=== PATIENT | male | born 1980 | race Caucasian/White ===

== ENCOUNTER 2023-12-29 02:26 | Emergency (ER) | payer OTHER, BC ==
[~2023-12-29] VITALS: Ht 170.2 cm; Wt 100.7 kg
[2023-12-29] MEDS ORDERED: OXYCODONE/APAP 10/325 TAB PO ONE (03:45)
[2023-12-29] MEDS ORDERED: PERCOCET 5-3251 EACH PO (03:50)
[2023-12-29] MEDS ORDERED: OXYCODONE/ACETAMINOPHEN 1 TAB HOME.PACK PO ONE (04:00)
[2023-12-29 04:09] VITALS: BP 135/84
== END 2023-12-29 04:12 | disposition home or self-care (01) ==
LOC: ED 02:26
DX: H16.133 Photokeratitis, bilateral (principal); I10 Essential (primary) hypertension
CPT/HCPCS: 99283

== ENCOUNTER 2024-03-28 12:46 | Emergency (ER) | payer BC ==
[~2024-03-28] VITALS: Ht 170.2 cm; Wt 96.6 kg
[~2024-03-28 12:46] MED LIST: PERCOCET 5-3251 EACH PO
[2024-03-28] MEDS ORDERED: ondansetron HCL 4 MG/2 ML VIAL IV ONE (13:15)
[2024-03-28 13:21] LABS: BASOPHILS 0.4 % (0-2); EOSINOPHILS 0.5 % (0-6); HEMATOCRIT 43.9 % (35.0-50.0); HEMOGLOBIN 14.9 g/dL (12.0-18.0); LYMPHOCYTES 17.8 % (24-44); MCH 30.5 (27-36); MCHC 33.8 g/dl (30-36); MCV 90.2 fl (81-99); MONOCYTES 8.5 % (0-12); NEUTROPHILS 72.8 % (39-80); PLATELET COUNT 259 K/uL (140-440); RBC 4.87 M/ul (4.3-5.7); RDW 13.2 (10.5-15.0)
[2024-03-28 13:44] LABS: ALBUMIN 3.7 g/dL (3.4-5.0); ALBUMIN/GLOBULIN RATIO 0.97 (1.1-2.4); ANION GAP 16.4 (7-21); BILIRUBIN, TOTAL 0.7 mg/dL (0.2-1.0); BUN/CREATININE RATIO 9.9 (6.0-28.6); CALCIUM 9.2 mg/dL (8.5-10.1); CREATININE, SERUM 1.11 mg/dL (0.70-1.30); MAGNESIUM 1.9 mg/dL (1.8-2.4); POTASSIUM 3.4 mmol/L (3.5-5.1); PROTEIN, TOTAL 7.5 g/dL (6.4-8.2)
[2024-03-28] MEDS ORDERED: LISINOPRIL20 MG PO (13:44)
[2024-03-28] MEDS ORDERED: SODIUM CHLORIDE 0.9% 1,000 ML IV PRN (13:45)
[2024-03-28] MEDS ORDERED: PRILOSEC OTC20 MG PO (13:45)
[2024-03-28 14:03] LABS: LACTIC ACID, BLOOD 0.7 mmol/L (0.4-2.0)
[2024-03-28 15:30] LABS: BILIRUBIN, URINE NEGATIVE (negative); BLOOD/HGB, URINE NEGATIVE (Negative); KETONE, URINE SMALL (Negative); LEUK ESTERASE, URINE NEGATIVE (negative); NITRITE, URINE NEGATIVE (negative); PH, URINE 5.5 (5-7)
[2024-03-28] MEDS ORDERED: ONDANSETRON ODT8 MG PO (15:42)
[2024-03-28 15:53] VITALS: BP 133/76
== END 2024-03-28 15:54 | disposition home or self-care (01) ==
LOC: ED 12:46
PROVIDERS: Emergency Medicine
DX: R10.32 Left lower quadrant pain (principal); R19.7 Diarrhea, unspecified; R10.9 Unspecified abdominal pain; Z79.899 Other long term (current) drug therapy
CPT/HCPCS: 36415; 74177; 80053; 81003; 83605; 83690; 83735; 85025; 96361; 99284-25; J2405; J7030; Q9967

== ENCOUNTER 2024-08-21 14:17 | Emergency (ER) | payer BC ==
[~2024-08-21] VITALS: Ht 170.2 cm; Wt 100.1 kg
[~2024-08-21 14:17] MED LIST changes: +LISINOPRIL20 MG PO; +ONDANSETRON ODT8 MG PO; +PRILOSEC OTC20 MG PO
[2024-08-21 15:21] VITALS: BP 89/71
== END 2024-08-21 15:39 | disposition home or self-care (01) ==
LOC: ED 14:17
DX: S30.1XXA Contusion of abdominal wall, initial encounter (principal); I10 Essential (primary) hypertension; Y93.52 Activity, horseback riding; Z79.899 Other long term (current) drug therapy
CPT/HCPCS: 73502; 99284

== ENCOUNTER 2024-12-19 14:18 | Emergency (ER) | payer OTHER, BC | END 2024-12-19 21:41 | disposition home or self-care (01) | LOC: ED 14:18 | DX: S52.122A Displaced fracture of head of left radius, initial encounter for closed fracture (principal); I10 Essential (primary) hypertension; Z79.899 Other long term (current) drug therapy; V80.010A Animal-rider injured by fall from or being thrown from horse in noncollision accident, initial encounter ==

== ENCOUNTER 2024-12-25 07:00 | Day surgery (SDC) | payer OTHER, BC ==
[~2024-12-25] VITALS: Ht 170.2 cm; Wt 100.0 kg
[~2024-12-25 07:00] MED LIST changes: +CEFAZOLIN SODIUM 2 GM in SODIUM CHLORIDE 0.9% 100 ML IV SCH; +DEXAMETHASONE SOD PHOS 4 MG/ML VIAL ONE; +HYDROCODON-ACE1 EA11 PO; +IBLOOD GLUCOSE TEST STRIP 1 EA TEST VI PRN; +KETOROLAC TROMETHAMINE 30 MG/ML VIAL ONE; +LACTATED RINGER'S 1,000 ML IV SCH; +LIDOCAINE HCL 1% 5 ML SDV INJ ONE; +LIDOCAINE HCL 2% 5 ML SDV ONE; +MIDAZOLAM HCL 2 MG/2 ML VIAL ONE; +Ropivacaine HCl 0.5% 30 ML VIAL ONE; +SODIUM CHLORIDE 0.9% 20 ML IV ONE; +TRANEXAMIC ACID IN NACL,ISO-OS 1,000 MG/100 ML PIGGYBACK IV SCH; +fentaNYL citrate 100 MCG/2 ML VIAL ONE
[2024-12-25 07:30] VITALS: BP 125/79
[2024-12-25] MEDS ORDERED: NALOXONE HCL 0.4 MG SYR IV PRN (07:45)
[2024-12-25] MEDS ORDERED: MIDAZOLAM HCL 2 MG/2 ML VIAL IV PRN (07:45)
[2024-12-25] MEDS ORDERED: IBLOOD GLUCOSE TEST STRIP 1 EA TEST VI PRN (07:45)
[2024-12-25] MEDS ORDERED: fentaNYL citrate 50 MCG/ML SDV IV PRN (07:45)
[2024-12-25] MEDS ORDERED: TRANEXAMIC ACID IN NACL,ISO-OS 200 ML IV ONE (07:50)
[2024-12-25] MEDS ORDERED: KETOROLAC TROMETHAMINE 15 MG/ML VIAL IV PRN (08:00)
[2024-12-25] MEDS ORDERED: OXYCODONE HCL 5 MG TAB PO PRN (08:00)
[2024-12-25] MEDS ORDERED: CEFAZOLIN SODIUM 2 GM VIAL ONE (08:13)
[2024-12-25] MEDS ORDERED: SODIUM CHLORIDE 0.9% 100 ML IV ONE (08:13)
[2024-12-25] MEDS ORDERED: LIDOCAINE HCL 2% 5 ML SDV ONE (08:14)
[2024-12-25] MEDS ORDERED: OXYCODONE HCL5 M1 PO (08:47)
[2024-12-25] MEDS ORDERED: GABAPENTIN300 MG PO (08:47)
[2024-12-25] MEDS ORDERED: KETOROLAC TROME10 MG PO (08:48)
--- NOTE | 2024-12-25 08:50 | NUR ---
12/25/24 0850 Lexi Chaudhry 0844: PT ARRIVES TO PACU DROWSY, BUT EASILY AROUSABLE. REPORT RECEIVED FROM FORESTRY FOREMAN AND OIL INSPECTOR. SONY 0845: PT SPONTANESOULY WAKES UP AND GOES BACK TO SLEEP. HE DENIES PAIN AND NASUEA.
[2024-12-25] MEDS ORDERED: GABAPENTIN 300 MG CAP PO SCH (09:00)
--- NOTE | 2024-12-25 09:11 | NUR ---
PT ARRIVES TO DS FROM PACU VIA STRETCHER. PT IS A&O, ASKING QUESTIONS APPROPRIATELY. PT ON RA W/O2 >90%, RESPIRATIONS EVEN AND UNLABORED, NO SIGNS OF DISTRESS. REPORT RECEIVED FROM IRENA NAJERA, PT AND PT MOTHER AT BEDSIDE. PT PROVIDED PUDDING, CRACKERS, AND ICE WATER. PT TOLERATING ORALS WITHOUT DIFFICULTY SWALLOWING. PO GABAPENTIN GIVEN (SEE EMAR). CALL LIGHT WITHIN REACH, PT REPORTS NO FURTHER QUESTIONS OR NEEDS AT THIS TIME.
[2024-12-25 09:12] VITALS: BP 115/62
--- NOTE | 2024-12-25 09:45 | NUR ---
IN PT ROOM FOR PAIN ASSESSMENT. PT STATES HE HAS NO PAIN OR NAUSEA. PT GETTING DRESSED AT THIS TIME W/ASSISTANCE FROM PT AND PT MOTHER. CALL LIGHT WITHIN REACH. PT STATES NO FURTHER NEEDS AT THIS TIME.
[2024-12-25 10:06] VITALS: BP 124/65
--- NOTE | 2024-12-25 10:10 | NUR ---
IN PT ROOM FOR VS AND ASSESSMENT. THIS RN GIVES DC EDUCATION TO PT, AND PT FAMILY. ALL STATE VERBAL UNDERSTANDING AND NO FURTHER QUESTIONS OR NEEDS AT THIS TIME. PT OFF OF UNIT VIA WC TO PASSENGER SIDE OF VEHICLE. ALL BELONGINGS IN PT POSSESSION. ICE WATER, ICE PACK, AND SLING IN PT POSSESSION.
[2024-12-25] MEDS ORDERED: SEVOFLURANE 250 ML BTL INH ONE (14:21)
--- NOTE | 2024-12-26 08:27 | OR ---
[facility] [address], [place] [address] Signed DATE OF OPERATION: 12/25/2024 SURGEON: Yunier Valdez MD PREOPERATIVE DIAGNOSIS: Fracture dislocation, left elbow. POSTOPERATIVE DIAGNOSIS: Fracture dislocation, left elbow. PROCEDURE PERFORMED: Closed reduction, left elbow with casting. COATING LINE WORKER: None. ANESTHESIA: General. BLOOD LOSS: None. BRIEF HISTORY: Chase is a 43-year-old gentleman, thrown off a horse, dislocating his elbow with a large coronoid fracture. He was reduced in the ER and placed in an inadequate splint. He was then sent to CT scan where the CT revealed he was dislocated once again. He was then sent home. He appeared in my office with his elbow dislocated yesterday. We booked him for the surgery this morning to close reduce this with possible ex fix. Risks, benefits, and alternatives were discussed. He understands, wished to proceed. DESCRIPTION OF PROCEDURE: Once consent was obtained, he was taken to the operating room. After adequate anesthesia, he was placed on the OR table with a hand table. C-arm was brought in and using a combination of traction and in extension and manipulation, the elbow was reduced. A good concentric reduction was obtained. This was checked using image intensifier and found to be good. He was unstable beyond 80 degrees of flexion. The arm was then flexed to about 95 degrees. He was then placed in a posterior splint with a large side pieces and the reduction was checked once again after the plaster had set. The elbow reduction was maintained. He was then awakened, taken to the recovery room in satisfactory Electronically Signed By: YUNIER VALDEZ MD 12/26/24 0827 PATIENT NAME: CHASE BARR OPERATIVE REPORT DATE OF : 78 REPORT #: [id number] PHYSICIAN: YUNIER VALDEZ MD PCP: NICANOR GARCIA MD REPORT IS CONFIDENTIAL AND NOT TO BE RELEASED WITHOUT AUTHORIZATION [facility] [address] [facility] [place], [place] [address] Signed condition. All sponge, needle, and instrument counts were correct. Yunier Valdez MD BA/MODL /[id number] Copies: ~ Electronically Signed By: YUNIER VALDEZ MD 12/26/24 0827 PATIENT NAME: CHASE BARR OPERATIVE REPORT DATE OF : 78 REPORT #: [id number] PHYSICIAN: YUNIER VALDEZ MD PCP: NICANOR GARCIA MD REPORT IS CONFIDENTIAL AND NOT TO BE RELEASED WITHOUT AUTHORIZATION
== END 2024-12-25 10:17 ==
LOC: DS 07:00
PROVIDERS: ATTEND Specialist
PROC: 3E0T3BZ Introduction of Anesthetic Agent into Peripheral Nerves and Plexi, Percutaneous Approach (ICD-10-PCS; 2024-12-25)
PROC: 0RSMXZZ Reposition Left Elbow Joint, External Approach (ICD-10-PCS; principal; 2024-12-25 08:00)
DX: S52.122A Displaced fracture of head of left radius, initial encounter for closed fracture (principal); S52.042A Displaced fracture of coronoid process of left ulna, initial encounter for closed fracture; V80.010A Animal-rider injured by fall from or being thrown from horse in noncollision accident, initial encounter; I10 Essential (primary) hypertension; K21.9 Gastro-esophageal reflux disease without esophagitis; Z79.899 Other long term (current) drug therapy; Z90.49 Acquired absence of other specified parts of digestive tract
CPT/HCPCS: 01730; 64447; 73070; A9270; J1100; J1885; J2003; J2250; J2405; J2704; J2795; J3010; J7121